=== PATIENT | male | born 1960 | race Caucasian/White ===

== ENCOUNTER 2018-07-05 05:05 | Inpatient (IN) | payer OTHER ==
[~2018-07-05] VITALS: Ht 154.9 cm; Wt 71.2 kg
[2018-07-05 05:45] LABS: BASOPHILS % 0.2 % (0.0-2.0); EOSINOPHILS % 1.2 % (0.0-5.0); HEMATOCRIT. 45.9 % (42.0-52.0); HEMOGLOBIN. 15.2 g/dL (14.0-18.0); LYMPHOCYTES % 9.7 % (20.0-50.0); MEAN CORPUSCULAR VOLUME 87.3 fL (80.0-94.0); MEAN PLATELET VOLUME 8.9 fl (7.4-10.4); MONOCYTES % 9.5 % (2.0-8.0); NEUTROPHILS % 79.4 % (40.0-76.0); PLATELET 308 x1000/uL (130-400); RED BLOOD CELL COUNT 5.26 mill/uL (4.7-6.1); RED CELL DISTRIBUTION WIDTH 16.5 % (11.6-14.6)
[2018-07-05 05:46] LABS: CHLORIDE 111 mEq/L (98-107)
[2018-07-05 05:50] LABS: ETHANOL BLOOD < 10 mg/dL
[2018-07-05] MEDS ORDERED: SODIUM CHLORIDE 0.9% 1,000 ML IV ONE (07:24)
[2018-07-05 07:46] LABS: CLARITY URINE CLEAR (CLEAR); COLOR URINE YELLOW (YELLOW); KETONES URINE NEGATIVE (NEGATIVE); LEUKOCYTE ESTERASE URINE NEGATIVE (NEGATIVE); NITRITE URINE NEGATIVE (NEGATIVE); OCCULT BLOOD URINE NEGATIVE (NEGATIVE); PROTEIN URINE 1+ (NEGATIVE); SPECIFIC GRAVITY URINE 1.027 (1.005-1.030)
[2018-07-05 08:15] LABS: *AMPHETAMINES SCREEN URINE PRESUMTIVE POSITIVE (NEGATIVE); *BARBITURATES SCREEN URINE NEGATIVE (NEGATIVE); *BENZODIAZEPINES SCREEN URINE NEGATIVE (NEGATIVE); *COCAINE SCREEN URINE NEGATIVE (NEGATIVE); METHADONE URINE SCREEN NEGATIVE (NEGATIVE)
[2018-07-05 08:16] LABS: CANNABINOID URINE SCREEN PRESUMTIVE POSITIVE (NEGATIVE); OPIATES URINE SCREEN NEGATIVE (NEGATIVE); PHENCYCLIDINE URINE SCREEN NEGATIVE (NEGATIVE)
[2018-07-05 09:41] LABS: CREATINE KINASE 76 IU/L (39-308)
[2018-07-05 10:20] VITALS: BP 137/100
[2018-07-05 10:30] VITALS: BP 137/100
[2018-07-05] MEDS ORDERED: IOHEXOL-350 100 ML BOTTLE ONE (10:51)
[2018-07-05] MEDS ORDERED: MAGNESIUM/ALUMINUM HYDROXIDE/SIMETHICONE 30ML UDC PO PRN (11:00)
[2018-07-05] MEDS ORDERED: ACETAMINOPHEN 325MG TABLET PO PRN (11:00)
[2018-07-05] MEDS ORDERED: GUAIFENESIN 200MG/10ML SUGAR FREE UDC PO PRN (11:00)
[2018-07-05] MEDS ORDERED: CLONIDINE 0.1MG TABLET PO PRN (11:00)
[2018-07-05] MEDS ORDERED: HYDROCODONE/ACETAMINOPHEN 5/325MG TABLET PO PRN (11:00)
[2018-07-05] MEDS ORDERED: DOCUSATE SODIUM 100MG CAPSULE PO PRN (11:00)
[2018-07-05] MEDS ORDERED: ONDANSETRON HCL 4MG/2ML INJ IV PRN (11:00)
[2018-07-05] MEDS ORDERED: DEXTROSE 50% WATER 50ML SYRINGE IV PRN (11:30)
[2018-07-05 11:53] LABS: BG BASE EXCESS -1.8 mmol/L (-2.0-2.0); BG DEOXYHEMOGLOBIN 7.9 % (0.0-5.0); BG FRACTION INSPIRED OXYGEN 21; BG HCO3 ACT 22.8 mmol/L (22.0-26.0); BG METHEMOGLOBIN 0.2 % (0.0-1.5); BG OXYHEMOGLOBIN 90.9 % (94.0-97.0); BG PCO2 38.6 mmHg (35.0-45.0); BG PO2 64.4 mmHg (75.0-100.0); BG SAMPLE SITE LEFT RADIAL; BG TOTAL HEMOGLOBIN 14.8 g/dL (12.0-18.0); BG VENT MODE ROOM AIR
[2018-07-05] MEDS: ASPIRIN 81MG TABLET PO SCH (11:53)
[2018-07-05] MEDS: FUROSEMIDE 40MG/4ML VIAL IV SCH (11:53)
[2018-07-05] MEDS: AMLODIPINE 10MG TABLET PO SCH (11:53)
[2018-07-05] MEDS: BLOOD SUGAR DIAGNOSTIC STRIP TEST SCH ×3 (11:54→21:03)
[2018-07-05] MEDS: INSULIN LISPRO 100 UNITS/ML SUBCUT SCH ×3 (11:58→21:00)
[2018-07-05 12:00] VITALS: BP 135/100
[2018-07-05] MEDS: CLONIDINE 0.2MG TABLET PO SCH ×2 (14:00→21:43)
[2018-07-05] MEDS: IPRATROPIUM/ALBUTEROL 0.5-3(2.5)MG/3ML NEB INH SCH ×3 (14:08→20:11)
[2018-07-05 16:19] VITALS: BP 124/88
[2018-07-05] MEDS: LACTULOSE 20G/30ML UDC PO SCH ×2 (17:10→21:04)
[2018-07-05 20:00] VITALS: BP 135/78
[2018-07-05] MEDS: CARVEDILOL 6.25 MG TABLET PO SCH (21:04)
[2018-07-06] VITALS: BP 128/77
[2018-07-06 00:05] LABS: TOTAL IRON BINDING CAPACITY 316 ug/dL (250-450)
[2018-07-06] MEDS: IPRATROPIUM/ALBUTEROL 0.5-3(2.5)MG/3ML NEB INH SCH ×6 (00:13→20:22)
[2018-07-06 04:00] VITALS: BP 108/71
[2018-07-06] MEDS: CLONIDINE 0.2MG TABLET PO SCH ×3 (06:00→21:28)
[2018-07-06] MEDS: LACTULOSE 20G/30ML UDC PO SCH ×3 (06:04→21:28)
[2018-07-06] MEDS: INSULIN LISPRO 100 UNITS/ML SUBCUT SCH ×4 (06:34→20:55)
[2018-07-06] MEDS: BLOOD SUGAR DIAGNOSTIC STRIP TEST SCH ×4 (06:34→20:55)
[2018-07-06 07:37] LABS: BASOPHILS % 0.5 % (0.0-2.0); EOSINOPHILS % 4.1 % (0.0-5.0); HEMATOCRIT. 46.4 % (42.0-52.0); HEMOGLOBIN. 14.9 g/dL (14.0-18.0); LYMPHOCYTES % 18.8 % (20.0-50.0); MEAN CORPUSCULAR HEMOGLOBIN 28.6 pg (28.0-32.0); MEAN CORPUSCULAR VOLUME 88.7 fL (80.0-94.0); MEAN PLATELET VOLUME 9.3 fl (7.4-10.4); MONOCYTES % 10.3 % (2.0-8.0); NEUTROPHILS % 66.3 % (40.0-76.0); PLATELET 222 x1000/uL (130-400); RED BLOOD CELL COUNT 5.23 mill/uL (4.7-6.1); RED CELL DISTRIBUTION WIDTH 17.4 % (11.6-14.6)
[2018-07-06 08:00] VITALS: BP 103/69
[2018-07-06 08:29] LABS: CHLORIDE 109 mEq/L (98-107)
[2018-07-06 08:36] LABS: LDL CHOLESTEROL 77 mg/dL (5-100)
[2018-07-06 08:37] LABS: HDL CHOLESTEROL 38 mg/dL (40-59)
[2018-07-06 08:38] LABS: T4 FREE 0.97 ng/dL (0.76-1.46)
[2018-07-06] MEDS: CARVEDILOL 6.25 MG TABLET PO SCH ×2 (08:55→20:55)
[2018-07-06] MEDS: AMLODIPINE 10MG TABLET PO SCH (08:55)
[2018-07-06] MEDS ORDERED: FUROSEMIDE 40MG/4ML VIAL IVP SCH (09:00)
[2018-07-06] MEDS: PANTOPRAZOLE SODIUM 40 MG/VIAL IV SCH (09:12)
[2018-07-06] MEDS: FUROSEMIDE 40MG/4ML VIAL IV SCH (09:12)
[2018-07-06] MEDS: ASPIRIN 81MG TABLET PO SCH (09:12)
[2018-07-06 12:00] VITALS: BP 106/70
[2018-07-06 12:00] LABS: FERRITIN 52 ng/mL (22-322)
[2018-07-06 12:12] LABS: VITAMIN B12 SERUM 455 pg/mL (211-911)
[2018-07-06 12:24] LABS: FOLIC ACID (FOLATE) SERUM > 20.00 ng/mL (>5.38)
[2018-07-06 16:00] VITALS: BP 125/78
[2018-07-06] MEDS: ENOXAPARIN 40MG/0.4ML SYR SUBCUT SCH (17:27)
[2018-07-06 20:00] VITALS: BP 103/65
[2018-07-07] VITALS (7 sets, daily range): BP systolic 5–133; BP diastolic 61–89
[2018-07-07] MEDS: IPRATROPIUM/ALBUTEROL 0.5-3(2.5)MG/3ML NEB INH SCH ×6 (00:40→19:40)
[2018-07-07] MEDS: CLONIDINE 0.2MG TABLET PO SCH ×3 (06:00→22:00)
[2018-07-07] MEDS: LACTULOSE 20G/30ML UDC PO SCH ×3 (06:20→22:00)
[2018-07-07 06:32] LABS: BASOPHILS % 0.6 % (0.0-2.0); EOSINOPHILS % 4.6 % (0.0-5.0); HEMATOCRIT. 42.6 % (42.0-52.0); LYMPHOCYTES % 15.7 % (20.0-50.0); MEAN CORPUSCULAR HEMOGLOBIN 28.3 pg (28.0-32.0); MEAN PLATELET VOLUME 9.2 fl (7.4-10.4); MONOCYTES % 11.8 % (2.0-8.0); NEUTROPHILS % 67.3 % (40.0-76.0); PLATELET 296 x1000/uL (130-400); RED BLOOD CELL COUNT 4.95 mill/uL (4.7-6.1); RED CELL DISTRIBUTION WIDTH 16.2 % (11.6-14.6)
[2018-07-07 06:36] LABS: CHLORIDE 104 mEq/L (98-107)
[2018-07-07] MEDS: INSULIN LISPRO 100 UNITS/ML SUBCUT SCH ×4 (06:40→20:23)
[2018-07-07] MEDS: BLOOD SUGAR DIAGNOSTIC STRIP TEST SCH ×4 (06:40→20:02)
[2018-07-07] MEDS: ENOXAPARIN 40MG/0.4ML SYR SUBCUT SCH (09:21)
[2018-07-07] MEDS: ASPIRIN 81MG TABLET PO SCH (09:21)
[2018-07-07] MEDS: CARVEDILOL 6.25 MG TABLET PO SCH ×2 (09:22→20:18)
[2018-07-07] MEDS: AMLODIPINE 10MG TABLET PO SCH (09:22)
[2018-07-07] MEDS: PANTOPRAZOLE SODIUM 40 MG/VIAL IV SCH (09:22)
[2018-07-07] MEDS: FUROSEMIDE 40MG/4ML VIAL IV SCH (09:23)
[2018-07-07] MEDS: FUROSEMIDE 40MG TABLET PO SCH (21:00)
[2018-07-08] VITALS: BP 106/72
[2018-07-08] MEDS: IPRATROPIUM/ALBUTEROL 0.5-3(2.5)MG/3ML NEB INH SCH ×6 (01:02→20:35)
[2018-07-08 04:00] VITALS: BP 115/77
[2018-07-08] MEDS: BLOOD SUGAR DIAGNOSTIC STRIP TEST SCH ×4 (05:37→21:00)
[2018-07-08] MEDS: INSULIN LISPRO 100 UNITS/ML SUBCUT SCH ×4 (05:37→21:00)
[2018-07-08] MEDS: CLONIDINE 0.2MG TABLET PO SCH ×3 (05:42→21:37)
[2018-07-08] MEDS: LACTULOSE 20G/30ML UDC PO SCH ×3 (05:44→21:39)
[2018-07-08 08:00] VITALS: BP 99/55
[2018-07-08 08:08] LABS: BASOPHILS % 0.4 % (0.0-2.0); EOSINOPHILS % 4.1 % (0.0-5.0); HEMATOCRIT. 42.3 % (42.0-52.0); HEMOGLOBIN. 14.2 g/dL (14.0-18.0); LYMPHOCYTES % 17.1 % (20.0-50.0); MEAN CORPUSCULAR HEMOGLOBIN 28.8 pg (28.0-32.0); MEAN CORPUSCULAR VOLUME 85.9 fL (80.0-94.0); MEAN PLATELET VOLUME 8.7 fl (7.4-10.4); MONOCYTES % 11.3 % (2.0-8.0); NEUTROPHILS % 67.1 % (40.0-76.0); PLATELET 309 x1000/uL (130-400); RED BLOOD CELL COUNT 4.93 mill/uL (4.7-6.1); RED CELL DISTRIBUTION WIDTH 15.7 % (11.6-14.6)
[2018-07-08 08:35] LABS: CHLORIDE 104 mEq/L (98-107)
[2018-07-08] MEDS: AMLODIPINE 10MG TABLET PO SCH (08:52)
[2018-07-08] MEDS: CARVEDILOL 6.25 MG TABLET PO SCH ×2 (08:52→21:00)
[2018-07-08] MEDS: FUROSEMIDE 40MG TABLET PO SCH ×2 (08:52→21:00)
[2018-07-08] MEDS: ENOXAPARIN 40MG/0.4ML SYR SUBCUT SCH (09:10)
[2018-07-08] MEDS: ASPIRIN 81MG TABLET PO SCH (09:10)
[2018-07-08] MEDS: PANTOPRAZOLE SODIUM 40 MG/VIAL IV SCH (09:10)
[2018-07-08 12:00] VITALS: BP 108/56
[2018-07-08 16:00] VITALS: BP 109/78
[2018-07-08 20:00] VITALS: BP 104/67
[2018-07-09] VITALS (7 sets, daily range): BP systolic 102–126; BP diastolic 61–88
[2018-07-09] MEDS: IPRATROPIUM/ALBUTEROL 0.5-3(2.5)MG/3ML NEB INH SCH ×2 (00:59→12:30)
[2018-07-09] MEDS: BLOOD SUGAR DIAGNOSTIC STRIP TEST SCH ×3 (05:20→17:10)
[2018-07-09] MEDS: CLONIDINE 0.2MG TABLET PO SCH ×2 (05:37→14:00)
[2018-07-09] MEDS: LACTULOSE 20G/30ML UDC PO SCH ×2 (05:40→14:00)
[2018-07-09] MEDS: INSULIN LISPRO 100 UNITS/ML SUBCUT SCH ×3 (05:40→17:40)
[2018-07-09 07:06] LABS: BASOPHILS % 0.4 % (0.0-2.0); EOSINOPHILS % 3.7 % (0.0-5.0); HEMATOCRIT. 43.3 % (42.0-52.0); HEMOGLOBIN. 14.4 g/dL (14.0-18.0); LYMPHOCYTES % 18.6 % (20.0-50.0); MEAN CORPUSCULAR HEMOGLOBIN 28.5 pg (28.0-32.0); MEAN CORPUSCULAR VOLUME 86.1 fL (80.0-94.0); MEAN PLATELET VOLUME 8.8 fl (7.4-10.4); NEUTROPHILS % 66.3 % (40.0-76.0); PLATELET 327 x1000/uL (130-400); RED BLOOD CELL COUNT 5.03 mill/uL (4.7-6.1)
[2018-07-09 07:47] LABS: CHLORIDE 105 mEq/L (98-107)
[2018-07-09] MEDS: FUROSEMIDE 40MG TABLET PO SCH (08:42)
[2018-07-09] MEDS: FAMOTIDINE 20MG TABLET PO SCH ×2 (08:42→18:24)
[2018-07-09] MEDS: ENOXAPARIN 40MG/0.4ML SYR SUBCUT SCH (08:55)
[2018-07-09] MEDS: CARVEDILOL 6.25 MG TABLET PO SCH (08:55)
[2018-07-09] MEDS: ASPIRIN 81MG TABLET PO SCH (08:59)
[2018-07-09] MEDS: AMLODIPINE 10MG TABLET PO SCH (09:00)
[2018-07-09] MEDS ORDERED: FURO-151 MT (16:46)
[2018-07-09] MEDS ORDERED: ASPI-1160 PO (16:46)
[2018-07-09] MEDS ORDERED: COR6 PO (16:46)
[2018-07-09] MEDS ORDERED: CLON0.2T12 PO (16:46)
[2018-07-09] MEDS ORDERED: AMLO10TA80 PO (16:46)
== END 2018-07-09 20:30 | disposition home or self-care (01) | DRG 812 ==
LOC: ER 05:57 → 8WST 08:17 → EDBEDREQ 08:19 → ENRESERV 09:05
PROVIDERS: ADMIT Internal Medicine; ATTEND Internal Medicine
DX: T43.621A Poisoning by amphetamines, accidental (unintentional), initial encounter (principal); J96.01 Acute respiratory failure with hypoxia; G92 Toxic encephalopathy; I50.23 Acute on chronic systolic (congestive) heart failure; E44.1 Mild protein-calorie malnutrition; I42.9 Cardiomyopathy, unspecified; T40.7X1A Poisoning by cannabis (derivatives), accidental (unintentional), initial encounter; Y92.89 Other specified places as the place of occurrence of the external cause; Z68.29 Body mass index [BMI] 29.0-29.9, adult; I11.0 Hypertensive heart disease with heart failure; K76.0 Fatty (change of) liver, not elsewhere classified; J45.909 Unspecified asthma, uncomplicated; K57.30 Diverticulosis of large intestine without perforation or abscess without bleeding; K57.90 Diverticulosis of intestine, part unspecified, without perforation or abscess without bleeding; F15.90 Other stimulant use, unspecified, uncomplicated; E78.5 Hyperlipidemia, unspecified; I25.10 Atherosclerotic heart disease of native coronary artery without angina pectoris; K44.9 Diaphragmatic hernia without obstruction or gangrene; M47.816 Spondylosis without myelopathy or radiculopathy, lumbar region; Z86.73 Personal history of transient ischemic attack (TIA), and cerebral infarction without residual deficits; Z95.0 Presence of cardiac pacemaker
CPT/HCPCS: 36415; 36600; 71045; 71275; 74177; 76700; 80048; 80061; 80305; 82140; 82375; 82550; 82607; 82728; 82746; 82805; 82962; 83036; 83540; 83550; 83605; 84439; 84443; 84481; 84484; 93005; 93306; 93970; 96360; 99285; C9113; G0482; J1650; J1815; J1940; J7620; Q9967

== ENCOUNTER 2018-11-26 07:15 | Inpatient (IN) | payer OTHER ==
[~2018-11-26] VITALS: Ht 165.1 cm; Wt 76.2 kg
[~2018-11-26 07:15] MED LIST: AMLO10TA80 PO; ASPI-1160 PO; CLON0.2T12 PO; COR6 PO; FURO-151 MT
[2018-11-26 08:05] LABS: BASOPHILS % 0.8 % (0.0-2.0); EOSINOPHILS % 1.3 % (0.0-5.0); HEMATOCRIT. 43.4 % (42.0-52.0); HEMOGLOBIN. 14.2 g/dL (14.0-18.0); LYMPHOCYTES % 16.3 % (20.0-50.0); MEAN CORPUSCULAR HEMOGLOBIN 28.2 pg (28.0-32.0); MEAN PLATELET VOLUME 8.8 fl (7.4-10.4); MONOCYTES % 10.1 % (2.0-8.0); NEUTROPHILS % 71.5 % (40.0-76.0); PLATELET 302 x1000/uL (130-400); RED BLOOD CELL COUNT 5.05 mill/uL (4.7-6.1); RED CELL DISTRIBUTION WIDTH 16.4 % (11.6-14.6)
[2018-11-26 08:10] LABS: CHLORIDE 113 mEq/L (98-107)
[2018-11-26] MEDS ORDERED: ATOR40TA70 PO (08:49)
[2018-11-26 09:10] LABS: BG BASE EXCESS -1.8 mmol/L (-2.0-2.0); BG DEOXYHEMOGLOBIN 1.3 % (0.0-5.0); BG FRACTION INSPIRED OXYGEN 28; BG HCO3 ACT 22.8 mmol/L (22.0-26.0); BG METHEMOGLOBIN 0.7 % (0.0-1.5); BG OXYGEN SATURATION 98.7 % (92.0-98.5); BG PCO2 38.1 mmHg (35.0-45.0); BG PH 7.394 (7.350-7.450); BG PO2 128.5 mmHg (75.0-100.0); BG SAMPLE SITE LEFT RADIAL; BG TOTAL HEMOGLOBIN 14.2 g/dL (12.0-18.0); BG VENT MODE NASAL CANNULA
[2018-11-26] MEDS ORDERED: ENALAPRIL 2.5MG/2ML VIAL 2ML IV ONE (09:30)
[2018-11-26] MEDS ORDERED: FUROSEMIDE 40MG/4ML VIAL IVP ONE (09:30)
[2018-11-26 11:32] VITALS: BP 158/94
[2018-11-26 11:33] VITALS: BP 158/94
[2018-11-26] MEDS ORDERED: NA PHOS,M-B/NA PHOS,DI-BA ENEMA 118ML PR PRN (12:00)
[2018-11-26] MEDS ORDERED: MAGNESIUM/ALUMINUM HYDROXIDE/SIMETHICONE 30ML UDC PO PRN (12:00)
[2018-11-26] MEDS ORDERED: LORAZEPAM 0.5MG TABLET PO PRN (12:00)
[2018-11-26] MEDS ORDERED: IPRATROPIUM/ALBUTEROL 0.5-3(2.5)MG/3ML NEB INH PRN (12:00)
[2018-11-26] MEDS ORDERED: ACETAMINOPHEN 325MG TABLET PO PRN (12:00)
[2018-11-26] MEDS ORDERED: CLONIDINE 0.1MG TABLET PO PRN (12:00)
[2018-11-26] MEDS ORDERED: NITROGLYCERIN 0.4MG TABLET SL SL PRN (12:00)
[2018-11-26] MEDS ORDERED: FUROSEMIDE 100MG/10ML VIAL IVP SCH (12:00)
[2018-11-26] MEDS ORDERED: ONDANSETRON HCL 4MG/2ML INJ IV PRN (12:00)
[2018-11-26] MEDS ORDERED: KETOROLAC 15MG/ML VIAL IV PRN (12:00)
[2018-11-26] MEDS ORDERED: GUAIFENESIN 200MG/10ML SUGAR FREE UDC PO PRN (12:00)
[2018-11-26] MEDS ORDERED: DOCUSATE SODIUM 100MG CAPSULE PO PRN (12:00)
[2018-11-26] MEDS: ASPIRIN 325MG EC TABLET PO SCH (12:22)
[2018-11-26] MEDS: CARVEDILOL 3.125 MG TABLET PO SCH ×2 (12:22→21:12)
[2018-11-26] MEDS: ENOXAPARIN 40MG/0.4ML SYR SUBCUT SCH (12:23)
[2018-11-26 13:18] LABS: *AMPHETAMINES SCREEN URINE NEGATIVE (NEGATIVE); *BARBITURATES SCREEN URINE NEGATIVE (NEGATIVE); *BENZODIAZEPINES SCREEN URINE NEGATIVE (NEGATIVE); *COCAINE SCREEN URINE NEGATIVE (NEGATIVE); CANNABINOID URINE SCREEN NEGATIVE (NEGATIVE); METHADONE URINE SCREEN NEGATIVE (NEGATIVE); OPIATES URINE SCREEN NEGATIVE (NEGATIVE); PHENCYCLIDINE URINE SCREEN NEGATIVE (NEGATIVE)
[2018-11-26 15:07] LABS: CREATINE KINASE MB FRACTION 4.2 ng/mL (0.5-3.6)
[2018-11-26 16:00] VITALS: BP 109/74
[2018-11-26] MEDS: SPIRONOLACTONE 25MG TABLET PO SCH (17:34)
[2018-11-26 20:00] VITALS: BP 114/69
[2018-11-26] MEDS: FAMOTIDINE 20MG TABLET PO SCH (21:00)
[2018-11-26] MEDS ORDERED: ZOLPIDEM TARTRATE 5MG TABLET PO PRN (21:00)
[2018-11-26] MEDS: FUROSEMIDE 40MG/4ML VIAL IVP SCH (21:11)
[2018-11-26] MEDS: LISINOPRIL 20MG TABLET PO SCH (21:13)
[2018-11-27] VITALS: BP 137/97
[2018-11-27 04:00] VITALS: BP 135/98
[2018-11-27] MEDS: SPIRONOLACTONE 25MG TABLET PO SCH ×2 (06:17→18:10)
[2018-11-27 08:00] VITALS: BP 139/95
[2018-11-27] MEDS: FAMOTIDINE 20MG TABLET PO SCH (08:19)
[2018-11-27] MEDS: ASPIRIN 325MG EC TABLET PO SCH (08:19)
[2018-11-27] MEDS: ENOXAPARIN 40MG/0.4ML SYR SUBCUT SCH (08:20)
[2018-11-27] MEDS: CARVEDILOL 3.125 MG TABLET PO SCH (08:20)
[2018-11-27] MEDS: LISINOPRIL 20MG TABLET PO SCH (08:20)
[2018-11-27] MEDS: FUROSEMIDE 40MG/4ML VIAL IVP SCH (08:20)
[2018-11-27 12:00] VITALS: BP 117/66
[2018-11-27 13:37] VITALS: BP_SYST 116; BP_SYST 117; BP_DIAS 66; BP_DIAS 76
[2018-11-27 16:00] VITALS: BP 116/76
== END 2018-11-27 19:35 | disposition home or self-care (01) | DRG 194 ==
LOC: ER 07:15 → ENRESERV 10:09 → 7WST 10:14 → EDBEDREQ 10:24
PROVIDERS: ADMIT Internal Medicine; ATTEND Internal Medicine
DX: I11.0 Hypertensive heart disease with heart failure (principal); J96.00 Acute respiratory failure, unspecified whether with hypoxia or hypercapnia; I50.43 Acute on chronic combined systolic (congestive) and diastolic (congestive) heart failure; E78.00 Pure hypercholesterolemia, unspecified; J45.909 Unspecified asthma, uncomplicated; Z91.11 Patient's noncompliance with dietary regimen; Z91.14 Patient's other noncompliance with medication regimen; Z95.810 Presence of automatic (implantable) cardiac defibrillator; Z79.82 Long term (current) use of aspirin; Z79.899 Other long term (current) drug therapy
CPT/HCPCS: 36415; 36600; 71045; 80061; 80305; 82375; 82550; 82553; 82805; 83036; 83880; 84484; 93005; 93970; 96374; 96375; 99285; J1650; J1940; J3490; J7620